=== PATIENT | female | born 1930 | race Caucasian/White ===

== ENCOUNTER → 2018-04-16 | Outpatient (CLI) | payer MEDICARE ==
[~2018-04-16] MED LIST: AMIT25TA PO; ASPI-630 PO; CALC500T30 PO; GUAI600T79 PO; IOHEXOL 240 MG/ML 50ML VIAL. ONE; IOHEXOL 240 MG/ML 50ML VIAL. PO ONE; IOHEXOL 300 MG/ML 75 ML VIAL. IV ONE; LANS15TA6 PO; LEVO112T2 PO; LISI-374 PO; METO-239 PO; MULT-18 PO; PRAV40TA PO
[2018-04-16 11:34] LABS: CALCIUM 9.7 mg/dL (8.5-10.1); CREATININE 1.6 mg/dL (0.6-1.0); GFR 30.5; POTASSIUM 3.4 mmol/L (3.5-5.1)
--- NOTE | 2018-04-16 12:48 | RAD ---
CT abdomen pelvis without IV contrast. Indication: CREAT 1.6, GFR 29. NO IV PER DR ORDER, ABDOMINAL PAIN, CHRONIC RENAL DISEASE Exposure: One or more of the following individualized dose reduction techniques were utilized for this examination: 1. Automated exposure control 2. Adjustment of the mA and/or kV according to patient size 3. Use of iterative reconstruction technique. Comparison: None are available. Contrast: No intravenous contrast given. Oral contrast was given. Evaluation of solid viscera, bowel and vasculature is compromised by the noncontrast technique. Lower thorax: Lung bases are clear. Liver: Unremarkable Spleen: Unremarkable Pancreas: Unremarkable Adrenals:No evidence of mass. Kidneys:Unremarkable Urinary tracts:No urolithiasis or hydronephrosis. Gallbladder: Surgically absent Aorta: Calcified and tortuous. Lymph nodes: Small mesenteric and retroperitoneal lymph nodes, without pathologic lymph node enlargement. GI tract: No evidence of acute colitis. Mild diverticulosis. No evidence of bowel obstruction. Appendix is normal. Reproductive organs:No evidence of mass. Urinary bladder: Unremarkable. Peritoneum: No evidence of pneumoperitoneum. No free fluid. Abdominal wall: Unremarkable Spine: Severe degenerative spondylosis with stenosis. Left convexity lumbar scoliosis. Bones: Degenerative changes at the sacroiliac joints. IMPRESSION: 1. No acute findings in the abdomen or pelvis. 2. Mild diverticulosis without evidence of acute diverticulitis. 1. Electronically signed by: Ajit Cisneros MD (04/16/2018 12:44 PM) [id number]
== END | disposition home or self-care (01) ==
LOC: CT 10:24
PROVIDERS: ATTEND Family Medicine
DX: K57.90 Diverticulosis of intestine, part unspecified, without perforation or abscess without bleeding (principal); M41.86 Other forms of scoliosis, lumbar region; M47.896 Other spondylosis, lumbar region; M48.061 Spinal stenosis, lumbar region without neurogenic claudication; E78.5 Hyperlipidemia, unspecified; E03.9 Hypothyroidism, unspecified; I12.9 Hypertensive chronic kidney disease with stage 1 through stage 4 chronic kidney disease, or unspecified chronic kidney disease; N18.3 Chronic kidney disease, stage 3 (moderate); N17.8 Other acute kidney failure
CPT/HCPCS: 36415; 74177; 80048; Q9966

== ENCOUNTER → 2018-05-06 | Outpatient (CLI) | payer MEDICARE ==
[~2018-05-06] MED LIST changes: -IOHEXOL 240 MG/ML 50ML VIAL. ONE; -IOHEXOL 240 MG/ML 50ML VIAL. PO ONE; -IOHEXOL 300 MG/ML 75 ML VIAL. IV ONE
--- NOTE | 2018-05-06 12:54 | RAD ---
EXAM: Renal sonogram. HISTORY: Renal insufficiency. TECHNIQUE: Sonographic imaging of the kidneys and bladder was performed. COMPARISON: CT dated 04/16/2018. FINDINGS: The right kidney measures 10.7 cm [id number]. The left kidney measures 10.1 cm [id number]. No solid or cystic renal lesion is seen. The bladder volume is 112 cc. The ureteral jets are not seen during the exam. There is suspected hepatic steatosis. IMPRESSION: 1. Sonographically unremarkable kidneys. 2. Nonvisualization of the ureteral jets during the exam. Electronically signed by: Johana Monreal MD (05/06/2018 12:50 PM) [facility]
== END | disposition home or self-care (01) ==
LOC: US 10:38
PROVIDERS: ATTEND Family Medicine
DX: I12.9 Hypertensive chronic kidney disease with stage 1 through stage 4 chronic kidney disease, or unspecified chronic kidney disease (principal); N18.3 Chronic kidney disease, stage 3 (moderate); E78.5 Hyperlipidemia, unspecified; E03.9 Hypothyroidism, unspecified
CPT/HCPCS: 76770

== ENCOUNTER 2019-10-09 13:34 | Inpatient (IN) | payer MEDICARE ==
[~2019-10-09] VITALS: Ht 167.6 cm; Wt 84.5 kg
[~2019-10-09 13:34] MED LIST changes: -CHOL200059 PO; -CYAN100016 SL; -DONE5TAB14 PO; -LEVO75TA5 PO; -LIPA1CAP PO; -METO50TA4 PO
[2019-10-09 13:59] VITALS: BP 147/85
[2019-10-09 15:19] LABS: BASO % 1 % (0-3); EOS % 1 % (0-3); HEMATOCRIT 42.7 % (36.0-47.0); HEMOGLOBIN 14.3 g/dL (12.0-15.5); LYMPH # 1.9 x10^3/uL (1.0-4.8); LYMPH % 37 % (24-48); MEAN CORPUSCULAR HEMOGLOBIN 32 pg (25-35); MEAN CORPUSCULAR HGB CONC 33 g/dL (31-37); MEAN CORPUSCULAR VOLUME 96 fL (79-100); MONO # 0.7 x10^3/uL (0.0-1.1); MONO % 13 % (0-9); NEUT # 2.5 x10^3uL (1.8-7.7); NEUT % 49 % (31-73); PLATELET COUNT 179 x10^3/uL (140-400); RED BLOOD COUNT 4.43 x10^6/uL (3.50-5.40); RED CELL DISTRIBUTION WIDTH 13.3 % (11.5-14.5); WHITE BLOOD COUNT 5.2 x10^3/uL (4.0-11.0)
[2019-10-09 15:30] LABS: ALBUMIN 3.5 g/dL (3.4-5.0); ALBUMIN/GLOBULIN RATIO 1.1 (1.0-1.7); CREATININE 1.5 mg/dL (0.6-1.0); GFR 32.7; POTASSIUM 3.4 mmol/L (3.5-5.1); TOTAL BILIRUBIN 0.4 mg/dL (0.2-1.0); TOTAL PROTEIN 6.8 g/dL (6.4-8.2)
[2019-10-09] MEDS ORDERED: CYAN100016 SL (15:40)
[2019-10-09] MEDS ORDERED: DONE5TAB14 PO (15:40)
[2019-10-09] MEDS ORDERED: METO50TA4 PO (15:40)
[2019-10-09] MEDS ORDERED: LEVO75TA5 PO (15:40)
[2019-10-09] MEDS ORDERED: LIPA1CAP PO (15:40)
[2019-10-09] MEDS ORDERED: CHOL200059 PO (15:40)
--- NOTE | 2019-10-09 15:55 | RAD ---
Examination: CT ABDOMEN PELVIS WO CONTRAST History: Abdominal pain, tarry stools Comparison/Correlation: 04/16/2018 CT abdomen and pelvis with contrast Findings: Axial images of the abdomen and pelvis were obtained without contrast. Sagittal and coronal reformatted images were provided. Minimal linear scarring involving the right anterior lung basilar region noted. Fatty infiltration of the liver is present. Cholecystectomy noted. Spleen is unremarkable. Pancreas and adrenal glands are normal. No radiopaque collecting system calculi. Diverticulosis of the colon is present without acute inflammation. Appendix is normal. No large abdominal or pelvic lymph nodes. No ascites or pelvic free fluid. Urinary bladder is unremarkable. Uterus is atrophic or absent. Multilevel degenerative disc space narrowing of the upper lumbar spine noted. Exaggerated kyphosis of the lumbar spine noted. Levoconvex scoliosis of the lower thoracic upper lumbar spine is notable. Bilateral sacroiliac joint degenerative sclerosis and vacuum phenomena noted. Impression: Diverticulosis. No acute process. Fatty infiltration of the liver. PQRS Compliance Statement: One or more of the following individualized dose reduction techniques were utilized for this examination: 1. Automated exposure control 2. Adjustment of the mA and/or kV according to patient size 3. Use of iterative reconstruction technique Electronically signed by: Oc Bass MD (10/09/2019 3:52 PM) [facility]
[2019-10-09] MEDS: IV NORMAL SALINE 1,000ML 1,000 ML IV SCH (16:45)
[2019-10-09] MEDS ORDERED: POTASSIUM CHLORIDE 20 MEQ TABLET.ER. PO ONE (17:00)
[2019-10-09] MEDS ORDERED: ZOLPIDEM 5 MG TABLET. PO PRN (18:15)
[2019-10-09 19:20] VITALS: BP 152/77
[2019-10-09] MEDS: AMITRIPTYLINE HCL 25 MG TABLET PO SCH (20:05)
[2019-10-09] MEDS: ATORVASTATIN CALCIUM 10 MG TABLET. PO SCH (20:05)
[2019-10-09 21:52] LABS: FECAL OB PT NEGATIVE (NEG)
[2019-10-09 22:05] VITALS: BP 135/71
[2019-10-10 00:14] LABS: BACTERIA,URINE 0 /HPF (0-FEW); BILIRUBIN,URINE NEG (NEG); CLARITY,URINE CLEAR; COLOR,URINE YELLOW; GLUCOSE,URINE NEG (NEG); NITRITE,URINE NEG (NEG); RBC,URINE 0 /HPF (0-2); SQUAMOUS EPITHELIAL CELL,UR OCC /LPF; UROBILINOGEN,URINE 0.2 mg/dL (0.2 mg/dL)
[2019-10-10] MEDS: IV NORMAL SALINE 1,000ML 1,000 ML IV SCH ×2 (01:27→20:15)
[2019-10-10 05:12] VITALS: BP 146/75
[2019-10-10 06:20] LABS: BASO % 1 % (0-3); EOS # 0.1 x10^3/uL (0.0-0.7); EOS % 1 % (0-3); HEMATOCRIT 39.9 % (36.0-47.0); HEMOGLOBIN 13.3 g/dL (12.0-15.5); LYMPH # 1.5 x10^3/uL (1.0-4.8); LYMPH % 31 % (24-48); MEAN CORPUSCULAR HEMOGLOBIN 32 pg (25-35); MEAN CORPUSCULAR HGB CONC 33 g/dL (31-37); MEAN CORPUSCULAR VOLUME 96 fL (79-100); MONO # 0.8 x10^3/uL (0.0-1.1); MONO % 16 % (0-9); NEUT # 2.4 x10^3uL (1.8-7.7); NEUT % 51 % (31-73); PLATELET COUNT 154 x10^3/uL (140-400); RED BLOOD COUNT 4.15 x10^6/uL (3.50-5.40); RED CELL DISTRIBUTION WIDTH 13.1 % (11.5-14.5); WHITE BLOOD COUNT 4.7 x10^3/uL (4.0-11.0)
[2019-10-10 06:26] LABS: CALCIUM 8.2 mg/dL (8.5-10.1); CREATININE 1.2 mg/dL (0.6-1.0); GFR 42.3; POTASSIUM 3.6 mmol/L (3.5-5.1)
[2019-10-10] MEDS: LEVOTHYROXINE 75 MCG TABLET PO SCH (06:38)
[2019-10-10] MEDS: METOPROLOL SUCC 24HR ER 50 MG TAB.ER.24H. PO SCH (08:27)
[2019-10-10] MEDS: CHOLECALCIFEROL (VITAMIN D3) 1,000 UNIT TABLET PO SCH (08:27)
[2019-10-10] MEDS: CALCIUM CARBONATE 500 MG TABLET PO SCH (08:27)
[2019-10-10] MEDS: CYANOCOBALAMIN (VITAMIN B-12) 1,000 MCG TABLET. PO SCH (08:27)
[2019-10-10] MEDS: DONEPEZIL HCL 10 MG TABLET PO SCH (08:27)
[2019-10-10] MEDS: MULTIVITAMIN with MINERAL TABLET. PO SCH (08:27)
[2019-10-10] MEDS: LISINOPRIL 20 MG TABLET PO SCH (08:28)
[2019-10-10] MEDS: hydroCHLOROthiazide 25 MG TABLET PO SCH (08:28)
[2019-10-10] MEDS: PANTOPRAZOLE 40 MG TABLET. PO SCH (08:28)
[2019-10-10] MEDS ORDERED: ELECTROLYTE (NON-ICU) PROTOCOL MC PRN (08:30)
[2019-10-10 10:25] VITALS: BP 139/66
[2019-10-10 14:44] VITALS: BP 153/82
[2019-10-10 19:21] VITALS: BP 154/84
[2019-10-10] MEDS: AMITRIPTYLINE HCL 25 MG TABLET PO SCH (20:15)
[2019-10-10] MEDS: ATORVASTATIN CALCIUM 10 MG TABLET. PO SCH (20:15)
[2019-10-10 22:26] VITALS: BP 145/79
[2019-10-11] MEDS: LEVOTHYROXINE 75 MCG TABLET PO SCH (05:29)
[2019-10-11 05:39] VITALS: BP 146/76
[2019-10-11 05:48] LABS: BASO % 1 % (0-3); EOS % 1 % (0-3); HEMATOCRIT 38.6 % (36.0-47.0); HEMOGLOBIN 13.1 g/dL (12.0-15.5); LYMPH # 1.6 x10^3/uL (1.0-4.8); LYMPH % 40 % (24-48); MEAN CORPUSCULAR HEMOGLOBIN 32 pg (25-35); MEAN CORPUSCULAR HGB CONC 34 g/dL (31-37); MEAN CORPUSCULAR VOLUME 96 fL (79-100); MONO # 0.6 x10^3/uL (0.0-1.1); MONO % 15 % (0-9); NEUT # 1.8 x10^3uL (1.8-7.7); NEUT % 43 % (31-73); PLATELET COUNT 150 x10^3/uL (140-400); RED BLOOD COUNT 4.04 x10^6/uL (3.50-5.40); RED CELL DISTRIBUTION WIDTH 13.1 % (11.5-14.5); WHITE BLOOD COUNT 4.1 x10^3/uL (4.0-11.0)
[2019-10-11 05:49] LABS: CALCIUM 7.9 mg/dL (8.5-10.1); CREATININE 1.3 mg/dL (0.6-1.0); GFR 38.6; POTASSIUM 3.4 mmol/L (3.5-5.1)
[2019-10-11] MEDS ORDERED: POTASSIUM CHLORIDE 20 MEQ TABLET.ER. PO ONE (07:30)
[2019-10-11] MEDS: MULTIVITAMIN with MINERAL TABLET. PO SCH (07:53)
[2019-10-11] MEDS: DONEPEZIL HCL 10 MG TABLET PO SCH (07:53)
[2019-10-11] MEDS: CHOLECALCIFEROL (VITAMIN D3) 1,000 UNIT TABLET PO SCH (07:53)
[2019-10-11] MEDS: PANTOPRAZOLE 40 MG TABLET. PO SCH (07:54)
[2019-10-11] MEDS: LISINOPRIL 20 MG TABLET PO SCH (07:54)
[2019-10-11] MEDS: CYANOCOBALAMIN (VITAMIN B-12) 1,000 MCG TABLET. PO SCH (07:54)
[2019-10-11] MEDS: CALCIUM CARBONATE 500 MG TABLET PO SCH (07:54)
[2019-10-11] MEDS: METOPROLOL SUCC 24HR ER 50 MG TAB.ER.24H. PO SCH (07:54)
[2019-10-11] MEDS: hydroCHLOROthiazide 25 MG TABLET PO SCH (07:54)
[2019-10-11] MEDS: IV NORMAL SALINE 1,000ML 1,000 ML IV SCH (10:10)
[2019-10-11 11:39] VITALS: BP 150/75
--- NOTE | 2019-10-11 12:09 | PN ---
DATE: SUBJECTIVE: This is an 89-year-old female in with abdominal pain, diarrhea. The patient is really recovering nicely, making good steady progress, but still having some pain and discomfort. The patient otherwise continues to make sure she was really quite dehydrated as her creatinine improves and her C. diff was negative. Other stool cultures are pending. OBJECTIVE: VITAL SIGNS: Otherwise, the patient's blood pressure is that of 146/76, respiratory rate 20, pulse 60, afebrile. GENERAL: The patient is alert and oriented. LUNGS: Diminished throughout, but clear. CARDIOVASCULAR: Regular sinus rhythm. ABDOMEN: Soft, nontender, protuberant except in the left lower quadrant area. EXTREMITIES: No clubbing, cyanosis or edema. NEUROLOGIC: The patient is alert and oriented x 3. IMPRESSION: Therefore, abdominal pain, possible colitis, gastroenteritis, hypokalemia, chronic kidney disease stage 3, tubular stasis. PLAN: The patient continued to advance on her diet and hopefully ready for discharge in the a.m. ALENA DUNLAP MD DR: DORON/carey JOB#: [id number] / [id number]
[2019-10-11] MEDS: LIPASE/PROTEAS/AMYLAS 10/32/42 CAPSULE.DR. PO SCH ×2 (12:20→17:09)
--- NOTE | 2019-10-11 12:49 | PN ---
DATE: SUBJECTIVE: An 89-year-old female in with severe abdominal pain. The patient has been having problems with severe diarrhea. The patient's C. diff was negative, but we are doing O and P, C and S, on that she may have had some ____ a week or so ago and may have led to, she has had 5-6 bowel movements, making her feel very weak and crampy, although her CT scan of abdomen and pelvis was unremarkable. OBJECTIVE: VITAL SIGNS: Blood pressure 153/82, respiratory rate 20, pulse 62, afebrile. GENERAL: This is an ill-appearing white female, moderate amount of distress. LUNGS: Diminished, but clear. CARDIOVASCULAR: Regular sinus rhythm. ABDOMEN: Soft. There is diffuse tenderness noted throughout. No rebound or guarding. Positive bowel sounds, hyperactive. EXTREMITIES: No clubbing, cyanosis, or edema. NEUROLOGIC: Intact. IMPRESSION: Severe gastroenteritis, colitis, diarrhea, dehydration. The patient has problems with chronic kidney disease stage 3 and will continue to be monitored carefully on her stool O and P, C and S, and make further evaluation on her as indicated. Also, check her for orthostasis. ALENA DUNLAP MD DR: DORON/carey JOB#: [id number] / [id number]
[2019-10-11 15:33] VITALS: BP 133/71
[2019-10-11 19:25] VITALS: BP 131/76
[2019-10-11 22:09] VITALS: BP 138/75
[2019-10-11] MEDS: AMITRIPTYLINE HCL 25 MG TABLET PO SCH (22:17)
[2019-10-11] MEDS: ATORVASTATIN CALCIUM 10 MG TABLET. PO SCH (22:17)
[2019-10-12 05:29] VITALS: BP 140/87
[2019-10-12] MEDS: LEVOTHYROXINE 75 MCG TABLET PO SCH (06:36)
[2019-10-12] MEDS: LIPASE/PROTEAS/AMYLAS 10/32/42 CAPSULE.DR. PO SCH (08:05)
[2019-10-12] MEDS: PANTOPRAZOLE 40 MG TABLET. PO SCH (08:06)
[2019-10-12] MEDS: MULTIVITAMIN with MINERAL TABLET. PO SCH (08:06)
[2019-10-12] MEDS: DONEPEZIL HCL 10 MG TABLET PO SCH (08:06)
[2019-10-12] MEDS: CYANOCOBALAMIN (VITAMIN B-12) 1,000 MCG TABLET. PO SCH (08:06)
[2019-10-12] MEDS: CALCIUM CARBONATE 500 MG TABLET PO SCH (08:06)
[2019-10-12] MEDS: hydroCHLOROthiazide 25 MG TABLET PO SCH (08:06)
[2019-10-12] MEDS: CHOLECALCIFEROL (VITAMIN D3) 1,000 UNIT TABLET PO SCH (08:06)
[2019-10-12] MEDS: METOPROLOL SUCC 24HR ER 50 MG TAB.ER.24H. PO SCH (08:07)
[2019-10-12] MEDS: LISINOPRIL 20 MG TABLET PO SCH (08:07)
[2019-10-12 11:23] VITALS: BP 136/77
--- NOTE | 2019-10-12 12:38 | DS ---
DATE OF DISCHARGE: 10/12/2019 HOSPITAL COURSE: An 89-year-old female came in with severe abdominal pain as well as nausea and extreme diarrhea. The patient's stools have been C. difficile negative. CAT scans were performed and they were basically unremarkable. The patient's pain was significant, was having up to 5-7 stools a day, unable to keep things down. She was hydrated in the usual fashion. Electrolytes were monitored and the patient made relatively good progress. Her creatinine dropped from 1.5, down to 1.3. Blood sugars were basically normal and the patient made good progress during the rest of her hospitalization without any complications. The patient was discharged home. IMPRESSION: Severe gastroenteritis, colitis, dehydration, diarrhea, chronic kidney disease stage 3, tubular stasis, hypokalemia. The patient was corrected on although she will be on a regular diet, decreased activity. Have her follow up accordingly. Make further evaluation on her as indicated. ALENA DUNLAP MD DR: DORON/carey JOB#: [id number] / [id number]
== END 2019-10-12 11:55 | disposition home or self-care (01) | DRG 392 ==
LOC: 1 SOUTH 13:34
PROVIDERS: ADMIT Family Medicine; ATTEND Family Medicine
DX: K52.9 Noninfective gastroenteritis and colitis, unspecified (principal); E86.0 Dehydration; E87.6 Hypokalemia; N18.3 Chronic kidney disease, stage 3 (moderate); R53.1 Weakness; Z88.8 Allergy status to other drugs, medicaments and biological substances
CPT/HCPCS: 36415; 74176; 80048; 80053; 81001; 82274; 85025; 87045; 87177; 87493; J7030

== ENCOUNTER → 2019-10-09 | Outpatient (CLI) | payer MEDICARE ==
[~2019-10-09] MED LIST changes: +CHOL200059 PO; +CYAN100016 SL; +DONE5TAB14 PO; +LEVO75TA5 PO; +LIPA1CAP PO; +METO50TA4 PO
[2019-10-09 11:10] LABS: BASO % 1 % (0-3); EOS % 1 % (0-3); HEMATOCRIT 46.1 % (36.0-47.0); HEMOGLOBIN 15.2 g/dL (12.0-15.5); LYMPH # 2.8 x10^3/uL (1.0-4.8); LYMPH % 41 % (24-48); MEAN CORPUSCULAR HEMOGLOBIN 32 pg (25-35); MEAN CORPUSCULAR HGB CONC 33 g/dL (31-37); MEAN CORPUSCULAR VOLUME 97 fL (79-100); MONO % 14 % (0-9); NEUT # 3.1 x10^3uL (1.8-7.7); NEUT % 44 % (31-73); PLATELET COUNT 192 x10^3/uL (140-400); RED BLOOD COUNT 4.74 x10^6/uL (3.50-5.40); RED CELL DISTRIBUTION WIDTH 13.7 % (11.5-14.5)
--- NOTE | 2019-10-09 15:16 | RAD ---
Examination: CT LUMBAR SPINE WO CONTRAST, CT THORACIC SPINE WO CONTRAST History: Upper lumbar pain Comparison/Correlation: 03/29/2018 CT abdomen and pelvis without contrast Findings: Axial images of the thoracic and lumbar spine were obtained. Sagittal and coronal reformatted images were provided. Tracheobronchial tree wall calcification. Severe disc space narrowing from C5 to T1 is present. Spurring is noted along the anterior aspect of the lower thoracic spine multiple levels. Confluent bony bridging along the anterior aspect lower thoracic spine from T7 to T11 is present without significant disc space narrowing at these levels. Neural foramina of the thoracic spine are unremarkable. Vacuum phenomenon at T12-L1 is present. Deformity of the T12 superior endplate is unchanged. Lumbar spine L1-2: Vacuum phenomenon at L1-2 is present. Severe disc space narrowing is present. L2-3: Vacuum phenomenon is present with significant disc space narrowing. L3-4: Disc space is adequate. Significant facet joint degenerative hypertrophy and remodeling is present. Bony encroachment of the left neural foramen is evident. Spinal canal narrowing is evident. L4-5: Minimal anterolisthesis of L4 in relation L5. Calcific involvement of the disc space noted. Advanced facet joint degenerative hypertrophy is present greater on the left. L5-S1: Facet joint degenerative hypertrophy bilaterally seen. Mild neural foraminal narrowing on the left is present. Vacuum joint phenomenon with sclerosis is noted bilaterally involving sacroiliac joint greater on the left. Levoconvex scoliosis of the low thoracic and lumbar spine is evident. [place] of the scoliosis at L1-2. No fracture or bone destruction. Diverticulosis incidentally seen involving thes:. Impression: Levoconvex scoliosis of the lower thoracic and lumbar spine. Exaggerated lordosis of the lumbar spine. Advanced degenerative changes of the lower lumbar spine facet joints. Low thoracic spine anterior bony bridging which may represent diffuse idiopathic skeletal hyperostosis. PQRS Compliance Statement: One or more of the following individualized dose reduction techniques were utilized for this examination: 1. Automated exposure control 2. Adjustment of the mA and/or kV according to patient size 3. Use of iterative reconstruction technique Electronically signed by: Oc Bass MD (10/09/2019 3:13 PM) [facility]
== END | disposition home or self-care (01) ==
LOC: CT 10:16
PROVIDERS: ATTEND Family Medicine
DX: M47.816 Spondylosis without myelopathy or radiculopathy, lumbar region (principal); M48.07 Spinal stenosis, lumbosacral region; M43.16 Spondylolisthesis, lumbar region; M41.85 Other forms of scoliosis, thoracolumbar region; M89.38 Hypertrophy of bone, other site; M53.3 Sacrococcygeal disorders, not elsewhere classified; M85.88 Other specified disorders of bone density and structure, other site; D50.0 Iron deficiency anemia secondary to blood loss (chronic)
CPT/HCPCS: 36415; 72128; 72131; 85025